=== PATIENT | female | born 1960 ===

== ENCOUNTER 2023-08-09 05:20 | Day surgery (SDC) | payer OTHER ==
[~2023-08-09 05:20] MED LIST: AMLODIPINE 5MG; CRESTOR40 MG PO; LATANOPROST; METFORMIN 750MG; [UNRECOGNIZED DRUG - OTHER]; [UNRECOGNIZED DRUG - OTHER]
[2023-08-09] MEDS ORDERED: POVIDONE-IODINE 118 ML BOTT TOP ONE (07:20)
[2023-08-09] MEDS ORDERED: POVIDONE-IODINE 118 ML BOTT TOP SCH (08:15)
[2023-08-09] MEDS ORDERED: SUGAMMADEX SODIUM 200 MG/2 ML VIAL IV ONE (09:09)
[2023-08-09] MEDS ORDERED: KETOROLAC TROMETHAMINE 30 MG VIAL IU ONE (09:15)
[2023-08-09] MEDS ORDERED: SUGAMMADEX SODIUM 200 MG/2 ML VIAL IV SCH (09:15)
[2023-08-09] MEDS ORDERED: KETOROLAC TROMETHAMINE 30 MG VIAL ONE (10:38)
== END 2023-08-09 10:55 | disposition home or self-care (01) ==
LOC: CIR.AMB 05:20
PROVIDERS: ATTEND Obstetrics & Gynecology
DX: N84.0 Polyp of corpus uteri (principal); N95.0 Postmenopausal bleeding; R93.89 Abnormal findings on diagnostic imaging of other specified body structures; Z91.040 Latex allergy status